=== PATIENT | male | born 1985 | race Caucasian/White ===

== ENCOUNTER 2017-10-17 21:49 | Emergency (ER) | payer SELFPAY ==
--- NOTE | 2017-10-17 22:09 | ED.PDOC ---
History of Present Illness - General Chief Complaint: Behavioral / Psych Stated Complaint: was going to hang himself, 2nd attempt today Time Seen by Provider: 10/17/17 22:04 Source: RN notes reviewed, Vital Signs reviewed Additional Information: 32 YEAR OLD BROUGHT HERE FOR PSYCH EVALUATION AND MEDICAL CLEARANCE HE HAS BEEN DEPRESSED PER HIS DAD WHO IS WITH HIM AT THIS TIME OF EVALUATION HE HAD BEEN DRINKING ALCOHOL AND ATTEMPTED TO HANG HIMSELF HOWEVER STOPPED BY HIS DAUGHTER HE LAUGHED AND SAID IT DID NOT GO THE WAY IT OUGHT TO HAVE HE ADMITS TO BEING DEPRESSED AND LOST INTEREST IN LIVING HE APPEARS PHYSICALLY NOT HURT HE DENIES ANY PHYSICAL SYMPTOMS AT THIS TIME HE HAS NO SIGNIFICANT MEDICAL HISTORY NEVER SO FAR HAD PSYCHIATRIST EVALUATION [facility] IS HERE AT THIS TIME TO EVALUATE WE WILL DO LABS TO CLEAR HIM MDICALLY - History of Present Illness Timing/Duration: just prior to arrival Severity: moderate Associated Symptoms: denies symptoms Allergies/Adverse Reactions: Allergies NO KNOWN ALLERGY Allergy (Verified 10/17/17 22:05) Home Medications: Ambulatory Orders Ibuprofen [Motrin Tab] 600 mg PO Q8H PRN #15 tab 11/11/14 Review of Systems - Review of Systems Constitutional: States: no symptoms reported EENTM: States: no symptoms reported Respiratory: States: no symptoms reported Cardiology: States: no symptoms reported Gastrointestinal/Abdominal: States: no symptoms reported Genitourinary: States: no symptoms reported Neurological: States: no symptoms reported, emotional problems Endocrine: States: no symptoms reported Hematologic/Lymphatic: States: no symptoms reported Past Medical History (General) - Patient Medical History Hx Seizures: No Hx Stroke: No Hx Dementia: No Hx Asthma: No Hx of COPD: No Hx Cardiac Disorders: No Hx Congestive Heart Failure: No Hx Pacemaker: No Hx Hypertension: No Hx Thyroid Disease: No Hx Diabetes: No Hx Gastroesophageal Reflux: No Hx Renal Disease: No Hx of HIV: No Hx MRSA: No - Social History Hx Tobacco Use: Yes Hx Alcohol Use: Yes Family Medical History - Family History Mother Family History: Unknown Physical Exam - Physical Exam General Appearance: Alert, Comfortable Eyes, Ears, Nose, Throat Exam: PERRL/EOMI, normal ENT inspection, TMs normal Neck: non-tender, full range of motion, supple Respiratory: chest non-tender, lungs clear, normal breath sounds Cardiovascular/Chest: normal peripheral pulses, regular rate, rhythm, no edema, no gallop Extremities Exam: non-tender, normal range of motion Neurological: alert, normal mood/affect, calm, 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, responds to pain Appearance: appropriate appearance, appropriate insight, neat, no memory impairment Behavior/Eye Contact/Speech: cooperative, good eye contact, decreased rate of speech Progress - Results/Orders Results/Orders: Laboratory Tests 10/17/17 10/17/17 10/17/17 22:15 22:15 22:15 WBC 9.1 RBC 4.84 Hgb 15.7 Hct 45.5 MCV 93.9 MCH 32.4 H MCHC 34.5 RDW 13.0 Plt Count 323 MPV 6.9 L Absolute Neuts (auto) 5.30 Absolute Lymphs (auto) 3.20 Absolute Monos (auto) 0.40 Absolute Eos (auto) 0.10 Absolute Basos (auto) 0.00 Neutrophils % 58.5 Lymphocytes % 35.7 Monocytes % 4.1 Eosinophils % 1.3 Basophils % 0.4 Sodium 142 Potassium 3.4 L Chloride 110 Carbon Dioxide 23 Anion Gap 12.4 BUN 8 Creatinine 0.86 BUN/Creatinine Ratio 9.3 L Random Glucose 106 H Serum Osmolality 281.9 Calcium 9.0 Total Bilirubin 0.2 AST 19 ALT < 8 L Alkaline Phosphatase 60 Serum Total Protein 7.3 Albumin 4.3 Globulin 3.0 Albumin/Globulin Ratio 1.4 Urine Opiates Screen Urine Barbiturates Ur Phencyclidine Scrn U Amphetamin/Meth Scrn U Benzodiazepines Scrn U Cocaine Metab Screen U Cannabinoids Screen Ethyl Alcohol 94.30 H* 10/17/17 22:20 WBC RBC Hgb Hct MCV MCH MCHC RDW Plt Count MPV Absolute Neuts (auto) Absolute Lymphs (auto) Absolute Monos (auto) Absolute Eos (auto) Absolute Basos (auto) Neutrophils % Lymphocytes % Monocytes % Eosinophils % Basophils % Sodium Potassium Chloride Carbon Dioxide Anion Gap BUN Creatinine BUN/Creatinine Ratio Random Glucose Serum Osmolality Calcium Total Bilirubin AST ALT Alkaline Phosphatase Serum Total Protein Albumin Globulin Albumin/Globulin Ratio Urine Opiates Screen Negative Urine Barbiturates Negative Ur Phencyclidine Scrn Negative U Amphetamin/Meth Scrn Negative U Benzodiazepines Scrn Negative U Cocaine Metab Screen Negative U Cannabinoids Screen Positive H Ethyl Alcohol DISCUSSED WITH DR QUINN [facility] WHO ACEPTED THE PATIENT FOR EVALUATION AT [facility] PATIENT WILL BE TRANSPORTED BY THE [facility] PERSONAL Departure - Departure Clinical Impression: Psychological disorder, Suicidal behavior with attempted self-injury Disposition: Transfer to [facility] Hospital Condition: Good Departure Forms: ED Discharge - Pt. Copy, Patient Portal Self Enrollment Instructions: DI for Psychosis Activity: walking as tolerated Home Medications: Ambulatory Orders Ibuprofen [Motrin Tab] 600 mg PO Q8H PRN #15 tab 11/11/14
[2017-10-17 22:31] VITALS: BP 131/69; TEMP 98
[2017-10-17 23:05] VITALS: O2SAT 96
== END 2017-10-17 23:52 ==
LOC: ER 21:49
DX: F99 Mental disorder, not otherwise specified (principal); Z91.5 Personal history of self-harm